=== PATIENT | female | born 1985 | race African-American/Black ===

== ENCOUNTER 2016-09-30 15:35 | Emergency (ER) | payer SELFPAY ==
[~2016-09-30] VITALS: Ht 165.1 cm; Wt 82.0 kg
[2016-09-30 15:37] VITALS: BP 130/63; PULSE 72; RESP 20; TEMP 98.8; O2SAT 98
== END 2016-09-30 18:11 | disposition left against medical advice (07) ==
LOC: NED 15:35
DX: R68.89 Other general symptoms and signs (principal)
CPT/HCPCS: 99281

== ENCOUNTER 2017-04-27 17:06 | Emergency (ER) | payer SELFPAY ==
[~2017-04-27] VITALS: Ht 165.1 cm; Wt 80.0 kg
[2017-04-27 17:08] VITALS: BP 138/95; PULSE 85; RESP 24; TEMP 98.5; O2SAT 100
[2017-04-27 17:48] VITALS: RESP 19
--- NOTE | 2017-04-27 17:52 | PD ---
HPI . headache, congestion, nausea since today Chief Complaint: Cold / Flu Symptoms Time Seen by Provider: 17:48 Travel History International Travel<30 days: No Contact w/Intl Traveler<30days: No Traveled to known affect area: No History of Present Illness HPI 31 yr old female here with c/o headache, congestion and nausea that onset today. She denies any fever or chills. She denies any chance of . She denies any actual vomiting or abdominal pain. PFSH Past Medical History Arthritis: No Asthma: No Autoimmune Disease: No Anxiety: No Depression: No Heart Rhythm Problems: Yes (TACHYCARDIA) Cancer: No Cardiovascular Problems: No High Cholesterol: No Chemotherapy: No Chest Pain: No Congestive Heart Failure: No COPD: No Cerebrovascular Accident: No Diabetes: No Diminished Hearing: No Endocrine: No Gastrointestinal Disorders: Yes (CHROHN'S) GERD: No Genitourinary: No Hiatal Hernia: No Immune Disorder: No Kidney Stones: No Musculoskeletal: No Neurologic: No Psychiatric: No Reproductive: Yes (HX GONORRHEA, SYPHILIS) Respiratory: No Migraines: No Radiation Therapy: No Renal Failure: No Seizures: No Sickle Cell Disease: No Sleep Apnea: No Thyroid Disease: No Ulcer: No ?: Not : 2 Para: 0 Miscarriage: 1 : 1 Ectopic : Yes (10/18) Past Surgical History Abdominal Surgery: Yes (COLON RESEC) AICD: No Arteriovenous Shunt: No Cardiac Surgery: No Ear Surgery: No Endocrine Surgery: No Eye Surgery: No Gynecologic Surgery: Yes (FOR ECTOPIC PREG. - UNSURE IF RIGHT TUBE REMVED) Insulin Pump: No Joint Replacement: No Oral Surgery: No Pacemaker: No Thoracic Surgery: No Other Surgery: Yes Social History Alcohol Use: Yes (occasional) Tobacco Use: Yes (2 cigarettes) Substance Use: No Allergies-Medications (Allergen,Severity, Reaction): Coded Allergies: No Known Allergies (Verified , 04/27/17) Reported Meds & Prescriptions Reported Meds & Active Scripts Active Zofran Odt (Ondansetron Odt) 4 Mg Tab 4 Mg SL Q8HR PRN Flonase Nasal [place] (Fluticasone Nasal [place]) 50 Mcg/Act [place] 100 Mcg EACH NARE BID Review of Systems General / Constitutional: No: Fever Eyes: No: Visual changes HENT: Positive: Headaches, Congestion Cardiovascular: No: Chest Pain or Discomfort Respiratory: No: Shortness of Breath Gastrointestinal: Positive: Nausea, No: Abdominal Pain Genitourinary: No: Dysuria Musculoskeletal: No: Pain Skin: No Rash Neurologic: No: Weakness Psychiatric: No: Depression Endocrine: No: Polydipsia Hematologic/Lymphatic: No: Easy Bruising Physical Exam Narrative GENERAL: AAO x 3, no acute distress, Well-nourished, well-developed patient. SKIN: Warm and dry. No visible rashes or bruising. HEAD: Normocephalic and atraumatic. EYES: No scleral icterus. No injection or drainage. ENT: No nasal drainage noted. Mucous membranes pink. Airway patent. clear effusion b/l, no oropharynx abn NECK: Supple, trachea midline. No JVD. no lymphadenopathy CARDIOVASCULAR: Regular rate and rhythm without murmurs, gallops, or rubs. RESPIRATORY: Breath sounds equal bilaterally. No accessory muscle use. No rhonchi or rales. GASTROINTESTINAL: Abdomen soft, non-tender, nondistended. EXTREMITIES: No cyanosis or edema. BACK: No obvious deformity. NEURO: CN II-12 intact, PSYCH: AAO x 3, normal affect. Data Data Last Documented VS Vital Signs Date Time Temp Pulse Resp B/P (MAP) Pulse Ox O2 Delivery O2 Flow Rate FiO2 04/27/17 17:48 Room Air 04/27/17 17:48 19 04/27/17 17:08 98.5 85 100 Orders Orders Ketorolac Inj (Toradol Inj) (04/27/17 18:00) Ondansetron Inj (Zofran Inj) (04/27/17 18:00) MDM Medical Decision Making Medical Screen Exam Complete: Yes Emergency Medical Condition: Yes Medical Record Reviewed: Yes Differential Diagnosis viral syndrome, allergic rhinitis, sinusitis Narrative Course 31 yr old female here with cold like symptoms and nausea. On exam there are no overt abnormalities other than maxillary sinus tenderness. I think this is related to some sinusitis, but I do not suspect bacterial with the onset and duration of symptoms. She could have underlying virus. I have provided her with toradol and zofran for headache here in the ED. I am sending her home with zofran and flonase. She will need to f/u with her PCP. Diagnosis Primary Impression: Acute sinusitis Qualified Codes: J01.00 - Acute maxillary sinusitis, unspecified Additional Impressions: Viral syndrome Nausea Patient Instructions: General Instructions Additional Instructions: Please return to emergency department if your symptoms return or worsen. Follow up with your primary care provider. Take medications as prescribed. Med/Other Pt SpecificInfo: Prescription(s) given Scripts Ondansetron Odt (Zofran Odt) 4 Mg Tab 4 MG SL Q8HR Y for Nausea/Vomiting, #12 TAB 0 Refills Prov: Chele Maynard MD 04/27/17 Fluticasone Nasal [place] (Flonase Nasal [place]) 50 Mcg/Act [place] 100 MCG EACH NARE BID for Allergies, #1 BOTTLE 0 Refills Prov: Chele Maynard MD 04/27/17 Disposition: 01 DISCHARGE HOME Condition: Stable Caryn Puga Apr 27, 2017 17:52
[2017-04-27] MEDS ORDERED: ZOFR4TAB3 SL (17:56)
[2017-04-27] MEDS ORDERED: FLUT1SPR5 EACH NARE (17:56)
[2017-04-27] MEDS ORDERED: ONDANSETRON HCL 4 MG/2 ML VIAL IM ONE (18:00)
[2017-04-27] MEDS ORDERED: KETOROLAC TROMETHAMINE 60 MG/2 ML (IM) VIAL IM ONE (18:00)
== END 2017-04-28 13:28 | disposition home or self-care (01) ==
LOC: NETRI 17:06 → EDTENT 04-28 13:28
DX: J01.00 Acute maxillary sinusitis, unspecified (principal); B34.9 Viral infection, unspecified; R11.0 Nausea; F17.210 Nicotine dependence, cigarettes, uncomplicated
CPT/HCPCS: 96372; 99284; J1885; J2405

== ENCOUNTER 2017-11-06 09:50 | Emergency (ER) | payer SELFPAY ==
[~2017-11-06] VITALS: Ht 162.6 cm; Wt 81.5 kg
[~2017-11-06 09:50] MED LIST: FLUT1SPR5 EACH NARE; ZOFR4TAB3 SL
[2017-11-06 09:56] VITALS: BP 136/65; PULSE 91; RESP 18; TEMP 98.6; O2SAT 98
--- NOTE | 2017-11-06 10:55 | PD ---
HPI Chief Complaint: Oral / Dental Pain or Problem Time Seen by Provider: 10:54 Travel History International Travel<30 days: No Contact w/Intl Traveler<30days: No Traveled to known affect area: No History of Present Illness HPI 32-year-old -[place] female presents emergency department with dental pain and swelling in the left lower jaw for the past 2 days. Patient states she has had a broken tooth in this area for approximately a month and a half. Patient states she has been trying to get in with a dentist but has been rescheduled several times. Patient denies fever, chills, or difficulty swallowing. She states the area is very sensitive to hot and cold. She states pain is 8 out of 10 currently. Patient has been taking extra strength Excedrin with some relief. Pain and swelling is worse this morning. She has no known drug allergies. PFSH Past Medical History Arthritis: No Asthma: No Autoimmune Disease: No Anxiety: No Depression: No Heart Rhythm Problems: Yes (TACHYCARDIA) Cancer: No Cardiovascular Problems: No High Cholesterol: No Chemotherapy: No Chest Pain: No Congestive Heart Failure: No COPD: No Cerebrovascular Accident: No Diabetes: No Diminished Hearing: No Endocrine: No Gastrointestinal Disorders: Yes (CROHNS) GERD: No Genitourinary: No Hiatal Hernia: No Immune Disorder: No Kidney Stones: No Musculoskeletal: No Neurologic: No Psychiatric: No Reproductive: Yes (HX GONORRHEA, SYPHILIS) Respiratory: No Migraines: No Radiation Therapy: No Renal Failure: No Seizures: No Sickle Cell Disease: No Sleep Apnea: No Thyroid Disease: No Ulcer: No : 2 Para: 0 Miscarriage: 1 : 1 Ectopic : Yes (10/18) Past Surgical History Abdominal Surgery: Yes (COLON RESEC) AICD: No Arteriovenous Shunt: No Cardiac Surgery: No Ear Surgery: No Endocrine Surgery: No Eye Surgery: No Gynecologic Surgery: Yes (FOR ECTOPIC PREG. - UNSURE IF RIGHT TUBE REMVED) Insulin Pump: No Joint Replacement: No Oral Surgery: No Pacemaker: No Thoracic Surgery: No Other Surgery: Yes Social History Alcohol Use: Yes (occasional) Tobacco Use: Yes (2 cigarettes) Substance Use: No Allergies-Medications (Allergen,Severity, Reaction): Coded Allergies: No Known Allergies (Verified , 04/27/17) Reported Meds & Prescriptions Reported Meds & Active Scripts Active Zofran Odt (Ondansetron Odt) 4 Mg Tab 4 Mg SL Q8HR PRN Flonase Nasal [place] (Fluticasone Nasal [place]) 50 Mcg/Act [place] 100 Mcg EACH NARE BID Review of Systems Except as stated in HPI: all other systems reviewed are Neg General / Constitutional: No: Fever, Chills Eyes: No: Visual changes HENT: Positive: Dental Difficulties, No: Headaches, Vertigo, Lightheadedness, Sore Throat, Rhinitis, Rhinorrhea, Congestion, Nosebleed, Neck Stiffness, Neck Pain, Masses, Gingival Bleeding, Ear Discharge, Earache Cardiovascular: No: Chest Pain or Discomfort Respiratory: No: Shortness of Breath Gastrointestinal: No: Abdominal Pain Genitourinary: No: Dysuria Musculoskeletal: No: Pain Skin: No Rash Neurologic: No: Weakness Psychiatric: No: Depression Endocrine: No: Polydipsia Hematologic/Lymphatic: No: Easy Bruising Physical Exam Narrative GENERAL: Patient appears in mild to moderate distress. SKIN: Warm and dry. Normal color. Normal turgor. HEAD: Atraumatic. Normocephalic. Patient is obvious swelling to the left lower jaw consistent with history. There is no erythema. EYES: Pupils equal and round. No scleral icterus. No injection or drainage. ENT: No nasal bleeding or discharge. Mucous membranes pink and moist. TMs are clear bilaterally. Patient has a broken #20 tooth, with local gingival swelling consistent with abscess. Tongue and uvula are midline. Pharynx is clear. Airways patent. NECK: Trachea midline. Supple and nontender. CARDIOVASCULAR: Regular rate and rhythm. RESPIRATORY: No accessory muscle use. Clear to auscultation. Breath sounds equal bilaterally. MUSCULOSKELETAL: Extremities without clubbing, cyanosis, or edema. No obvious deformities. NEUROLOGICAL: Awake and alert. No obvious cranial nerve deficits. Motor grossly within normal limits. Five out of 5 muscle strength in the arms and legs. Normal speech. PSYCHIATRIC: Appropriate mood and affect; insight and judgment normal. Data Data Last Documented VS Vital Signs Date Time Temp Pulse Resp B/P (MAP) Pulse Ox O2 Delivery O2 Flow Rate FiO2 11/06/17 09:56 98.6 91 18 136/65 (88) 98 Orders Orders Penicillin V Potassium (Veetids) (11/06/17 11:00) Ibuprofen (Motrin) (11/06/17 11:00) MDM Medical Decision Making Medical Screen Exam Complete: Yes Emergency Medical Condition: Yes Differential Diagnosis Broken tooth. Dental pain. Dental abscess. Narrative Course Patient is medically stable at time of exam. Patient is given her first dose of Pen-Vee K 500 mg p.o., as well as 800 mg ibuprofen p.o. Patient will be continued on Pen-Vee K 500 mg 4 times daily 10 days. Patient is continued on ibuprofen 800 mg 3 times daily with food #30. Patient is given Magic mouthwash to be used every 2 hours as needed dental pain 120 mL's with 2 refills. Patient is to follow-up with her dentist as soon as possible Patient can return to the emergency department if symptoms worsen. Diagnosis Primary Impression: Dental abscess Referrals: Dentist Patient Instructions: Dental Abscess (ED), General Instructions Additional Instructions: Patient is given her first dose of Pen-Vee K 500 mg p.o., as well as 800 mg ibuprofen p.o. Patient will be continued on Pen-Vee K 500 mg 4 times daily 10 days. Patient is continued on ibuprofen 800 mg 3 times daily with food #30. Patient is given Magic mouthwash to be used every 2 hours as needed dental pain 120 mL's with 2 refills. Patient is to follow-up with her dentist as soon as possible Patient can return to the emergency department if symptoms worsen. Med/Other Pt SpecificInfo: Prescription(s) given Disposition: 01 DISCHARGE HOME Condition: Stable Ever Santos Nov 06, 2017 10:55
[2017-11-06] MEDS ORDERED: PENICILLIN V POTASSIUM 500 MG TAB PO ONE (11:00)
[2017-11-06] MEDS ORDERED: IBUPROFEN 800 MG TAB PO ONE (11:00)
[2017-11-06] MEDS ORDERED: IBUP1TAB7 PO (11:07)
[2017-11-06] MEDS ORDERED: PENI500T PO (11:07)
[2017-11-06] MEDS ORDERED: MAGICADU2 SWISH-SPIT (11:07)
== END 2017-11-06 11:33 | disposition home or self-care (01) ==
LOC: NEPD 09:50
DX: K04.7 Periapical abscess without sinus (principal); K50.90 Crohn's disease, unspecified, without complications; F17.210 Nicotine dependence, cigarettes, uncomplicated
CPT/HCPCS: 99283

== ENCOUNTER 2018-01-16 08:10 | Emergency (ER) | payer SELFPAY ==
[~2018-01-16] VITALS: Ht 162.6 cm; Wt 82.0 kg
[~2018-01-16 08:10] MED LIST changes: +IBUP1TAB7 PO; +MAGICADU2 SWISH-SPIT; +PENI500T PO
[2018-01-16 08:14] VITALS: BP 136/65; PULSE 75; RESP 18; TEMP 98.6; O2SAT 100
[2018-01-16 10:01] LABS: AUTOMATED NEUTROPHIL # 7.5 TH/MM3 (1.8-7.7); BASOPHIL # 0.1 TH/MM3 (0-0.2); EOSINOPHIL # 0.1 TH/MM3 (0-0.4); EOSINOPHIL % 0.7 % (0.0-4.0); HEMATOCRIT 30.2 % (35.0-46.0); HEMOGLOBIN 9.2 GM/DL (11.6-15.3); LYMPH % 13.5 % (9.0-44.0); LYMPHOCYTE # 1.3 TH/MM3 (1.0-4.8); MEAN CELL VOLUME 75.3 FL (80.0-100.0); MEAN CORPUSCULAR HGB CONC 30.5 % (32.0-36.0); MEAN PLATELET VOLUME 8.8 FL (7.0-11.0); MONO % 3.9 % (0.0-8.0); MONOCYTE # 0.4 TH/MM3 (0-0.9); NEUT % 80.9 % (16.0-70.0); PLATELET COUNT 309 TH/MM3 (150-450); RED BLOOD COUNT 4.01 MIL/MM3 (4.00-5.30); RED CELL DISTRIBUTION WIDTH 17.5 % (11.6-17.2); WHITE BLOOD COUNT 9.3 TH/MM3 (4.0-11.0)
[2018-01-16 10:13] LABS: BILIRUBIN, URINE NEG (NEG); BLOOD, URINE MOD (NEG); GLUCOSE,URINE NEG (NEG); KETONE, URINE NEG (NEG); MUCUS URINE FEW /lpf (OCC); NITRITE,URINE NEG (NEG); PH, URINE 6.5 (5.0-8.5); SQUAMOUS EPITHELIAL CELL URINE 7 /hpf (0-5); TRANSITIONAL EPI CELLS, URINE <1 /hpf; URINE COLOR LIGHT-YELLOW (YELLW/STRAW); URINE LEUKOCYTE ESTERASE NEG (NEG)
--- NOTE | 2018-01-16 10:44 | PD ---
HPI Chief Complaint: Bleeding Time Seen by Provider: 09:16 Travel History International Travel<30 days: No Contact w/Intl Traveler<30days: No Traveled to known affect area: No History of Present Illness HPI 32-year-old female presents to the emergency room for evaluation of vaginal spotting for the past 6 days. Patient states her last menstrual cycle was about 1 month ago. States she is having unprotected sex. She reports that this bleeding is not typical of her normal menstrual cycles. States she does not even have enough blood to wear any pads or tampons. She only notices blood when she wipes. She denies any nausea, vomiting, abdominal pain, cramping, or any other vaginal discharge. History of ectopic for which she had to have emergency surgery. She also had one miscarriage. She denies any dysuria, urgency, or frequency. Patient also reports that she began working out a few weeks ago. PFSH Past Medical History Arthritis: No Asthma: No Autoimmune Disease: No Anxiety: No Depression: No Heart Rhythm Problems: Yes (TACHYCARDIA) Cancer: No Cardiovascular Problems: No High Cholesterol: No Chemotherapy: No Chest Pain: No Congestive Heart Failure: No COPD: No Cerebrovascular Accident: No Diabetes: No Diminished Hearing: No Endocrine: No Gastrointestinal Disorders: Yes (CROHNS) GERD: No Genitourinary: No Hiatal Hernia: No Immune Disorder: No Kidney Stones: No Musculoskeletal: No Neurologic: No Psychiatric: No Reproductive: Yes (HX GONORRHEA, SYPHILIS) Respiratory: No Migraines: No Radiation Therapy: No Renal Failure: No Seizures: No Sickle Cell Disease: No Sleep Apnea: No Thyroid Disease: No Ulcer: No ?: Unknown LMP: 518 : 2 Para: 0 Miscarriage: 1 : 1 Ectopic : Yes (10/18) Past Surgical History Abdominal Surgery: Yes (COLON RESEC) AICD: No Arteriovenous Shunt: No Cardiac Surgery: No Ear Surgery: No Endocrine Surgery: No Eye Surgery: No Gynecologic Surgery: Yes (FOR ECTOPIC PREG. - UNSURE IF RIGHT TUBE REMVED) Insulin Pump: No Joint Replacement: No Oral Surgery: No Pacemaker: No Thoracic Surgery: No Other Surgery: Yes Social History Alcohol Use: Yes (occasional) Tobacco Use: Yes (2 cigarettes) Substance Use: No Allergies-Medications (Allergen,Severity, Reaction): Coded Allergies: No Known Allergies (Verified Adverse Reaction, Unknown, 01/16/18) Reported Meds & Prescriptions Reported Meds & Active Scripts Active No Active Prescriptions or Reported Medications Review of Systems Except as stated in HPI: all other systems reviewed are Neg Physical Exam Narrative GENERAL: Well-nourished, well-developed female no acute distress. Afebrile. Ambulatory. Resting comfortably in bed. SKIN: Focused skin assessment warm/dry. HEAD: Normocephalic. EYES: No scleral icterus. No injection or drainage. NECK: Supple, trachea midline. No JVD or lymphadenopathy. CARDIOVASCULAR: Regular rate and rhythm without murmurs, gallops, or rubs. RESPIRATORY: Breath sounds equal bilaterally. No accessory muscle use. GASTROINTESTINAL: Abdomen soft, non-tender, nondistended. Data Data Last Documented VS Vital Signs Date Time Temp Pulse Resp B/P (MAP) Pulse Ox O2 Delivery O2 Flow Rate FiO2 01/16/18 08:14 98.6 75 18 136/65 (88) 100 Orders Orders Ed Urine Pregnancytest Poc (01/16/18 08:39) Urinalysis - C+S If Indicated (01/16/18 09:24) Beta Hcg (Quant/Titer) (01/16/18 09:24) Complete Blood Count With Diff (01/16/18 09:24) Complete Rh (01/16/18 09:24) Labs Laboratory Tests Test 01/16/18 09:35 01/16/18 09:36 Urine Color LIGHT-YELLOW Urine Turbidity CLEAR Urine pH 6.5 Urine Specific [place] 1.013 Urine Protein NEG mg/dL Urine Glucose (UA) NEG mg/dL Urine Ketones NEG mg/dL Urine Occult Blood MOD Urine Nitrite NEG Urine Bilirubin NEG Urine Urobilinogen LESS THAN 2.0 MG/DL Urine Leukocyte Esterase NEG Urine RBC 1 /hpf Urine WBC 1 /hpf Urine Squamous Epithelial Cells 7 /hpf Urine Transitional Epithelial Cells <1 /hpf Urine Mucus FEW /lpf Microscopic Urinalysis Comment CULT NOT INDICATED White Blood Count 9.3 TH/MM3 Red Blood Count 4.01 MIL/MM3 Hemoglobin 9.2 GM/DL Hematocrit 30.2 % Mean Corpuscular Volume 75.3 FL Mean Corpuscular Hemoglobin 23.0 PG Mean Corpuscular Hemoglobin Concent 30.5 % Red Cell Distribution Width 17.5 % Platelet Count 309 TH/MM3 Mean Platelet Volume 8.8 FL Neutrophils (%) (Auto) 80.9 % Lymphocytes (%) (Auto) 13.5 % Monocytes (%) (Auto) 3.9 % Eosinophils (%) (Auto) 0.7 % Basophils (%) (Auto) 1.0 % Neutrophils # (Auto) 7.5 TH/MM3 Lymphocytes # (Auto) 1.3 TH/MM3 Monocytes # (Auto) 0.4 TH/MM3 Eosinophils # (Auto) 0.1 TH/MM3 Basophils # (Auto) 0.1 TH/MM3 CBC Comment DIFF FINAL Differential Comment Human Chorionic Gonadotropin, Quant LESS THAN 1 MIU/ML MDM Medical Decision Making Medical Screen Exam Complete: Yes Emergency Medical Condition: Yes Medical Record Reviewed: Yes Differential Diagnosis Menstrual cycle, implantation bleeding, ectopic Narrative Course 32-year-old with history of dysfunctional uterine bleeding presents to the emergency room for evaluation of bleeding for the past 6 days. States it is not typical of her normal menstrual cycle because it is significantly less than normal. She denies any associated symptoms. No vaginal discharge. Abdomen soft, nontender. Last menstrual cycle was 12/15/2017. She is having unprotected sex. ED urine test is negative. CBC shows hemoglobin of 9.2, consistent with previous. Beta-hCG is less than 1. UA shows no signs of infection. Patient is likely having her menstrual cycle given her history of dysfunctional uterine bleeding and recent exercise regiment. She was told to take [id number] test in 1 week to make sure this is not implantation bleeding. She should return for worsening symptoms. She understands and agrees to plan. Diagnosis Primary Impression: Variable menstrual cycle Referrals: Primary Care Physician Additional Instructions: Take [id number] test in 1 week. Follow-up with [facility] if positive. Return to the emergency room for worsening symptoms. Scripts No Active Prescriptions or Reported Meds Disposition: 01 DISCHARGE HOME Condition: Stable Becca Lange Jan 16, 2018 10:44
== END 2018-01-16 11:08 | disposition home or self-care (01) ==
LOC: NEPC 08:10
DX: N93.8 Other specified abnormal uterine and vaginal bleeding (principal)
CPT/HCPCS: 81001; 84702; 84703; 85025; 99283